=== PATIENT | female | born 1955 | race Caucasian/White ===

== ENCOUNTER → 2017-12-30 21:25 | Outpatient (CLI) | payer BC, SELFPAY ==
[2017-12-30 21:31] LABS: Absolute Lymphocyte Count 2.26 X10^3/ul (0.83-4.51); Basophil# 0.02 X10^3/uL; Basophil% 0.2 % (0-1); Eosinophil# 0.12 X10^3/uL; Eosinophils% 1.3 % (0-5); Hematocrit 42.1 % (37-47); Hemoglobin 13.5 g/dl (12.0-15.0); Lymphocyte # 2.26 X10^3/ul (4.0); Lymphocyte % 24.2 % (19-41); Mean Corp Hgb Conc 32.1 g/gl (32-36); Mean Corpuscular Hgb 27.5 pg (27.0-32.0); Mean Corpuscular Volume 85.7 fL (81-99); Mean Platelet Vol. 9.5 fl (6.2-12.0); Monocyte# 0.89 X10^3/uL; Monocyte% 9.5 % (0-10); Neutrophil # 6.01 X10^3/uL (2.7-7.7); Neutrophil % 64.6 % (47-70); POSITIVE COUNT NO; POSITIVE DIFFERENTIAL NO; POSITIVE MORPHOLOGY NO; Platelet Count 367 K/mm3 (150-450); RBC Distribution Width CV 14.6 % (11.6-14.6); RBC Distribution Width SD 45.9 fl (35.1-43.9); Red Blood Count 4.91 M/mm3 (4.2-5.4); White Blood Count 9.3 K/mm3 (4.4-11.0)
[2017-12-30 21:48] LABS: BUN 15 mg/dL (7-18); Creatinine, Serum 0.99 mg/dL (0.55-1.02); EST Glomerular Filtration Rate 61 mL/min (>60); Glucose 88 mg/dL (74-106)
[2017-12-30 21:49] LABS: ALB/GLOB Ratio 1.1 RATIO (0.9-2.4); AST(SGOT) 24 U/L (15-37); Alanine Aminotransfer ALT/SGPT 40 U/L (13-56); Albumin, Serum 4.2 g/dL (3.2-5.0); Alkaline Phosphatase 101 U/L (45-117); Anion Gap 10 (5-15); BUN/Creat Ratio 15.2 RATIO (10-20); Calcium,Total 9.1 mg/dL (8.5-10.1); Chloride 102 mmol/L (98-107); Cholesterol 134 mg/dL (200); Est Glom Filt Rate - Afr Amer 74 mL/min (>60); Globulin 3.9 g/dL (2.2-4.2); High Density Lipoprotein 46 mg/dL; Potassium 4.3 mmol/L (3.5-5.1); Protein, Total 8.1 g/dL (6.4-8.2); Sodium Level 141 mmol/L (136-145); Triglycerides 109 mg/dL; Very Low Density Lipoprotein 22 mg/dL (5-40)
== END ==
PROVIDERS: Visit Provider Nurse Practitioner
DX: E78.5 Hyperlipidemia, unspecified (principal); K21.9 Gastro-esophageal reflux disease without esophagitis; D64.9 Anemia, unspecified
CPT/HCPCS: 80053; 80061; 85025

== ENCOUNTER → 2018-01-12 15:24 | Outpatient (CLI) | payer BC, SELFPAY ==
[2018-01-17 17:01] LABS: Acetylcholine Receptor Binding < 0.03 nmol/L (0.00-0.24)
== END ==
PROVIDERS: Visit Provider Ophthalmology
DX: H53.2 Diplopia (principal); H25.813 Combined forms of age-related cataract, bilateral; H43.812 Vitreous degeneration, left eye
CPT/HCPCS: 36415; 84238

== ENCOUNTER → 2018-01-17 21:11 | Outpatient (CLI) | payer BC, SELFPAY ==
[2018-01-17 21:44] LABS: Bilirubin, Direct 0.16 mg/dL (0.00-0.30)
== END ==
PROVIDERS: Visit Provider Nurse Practitioner
DX: R17 Unspecified jaundice (principal)
CPT/HCPCS: 82247; 82248

== ENCOUNTER → 2019-01-08 | Outpatient (CLI) | payer BC, SELFPAY ==
[2019-01-08 16:00] VITALS: BMI 42.7
[2019-01-08 23:52] LABS: Absolute Lymphocyte Count 1.98 X10^3/uL (0.83-4.51); Absolute Neutrophil Count 6.7 X10^3/uL (2.0-7.7); Basophil# 0.05 X10^3/uL; Basophil% 0.5 % (0-1); Eosinophil# 0.18 X10^3/uL; Eosinophils% 1.8 % (0-5); Hematocrit 41.4 % (37-47); Lymphocyte # 1.98 X10^3/ul (4.0); Lymphocyte % 19.8 % (19-41); Mean Corp Hgb Conc 31.4 g/dL (32-36); Mean Corpuscular Hgb 27.4 pg (27.0-32.0); Mean Corpuscular Volume 87.2 fL (81-99); Mean Platelet Vol. 9.3 fl (6.2-12.0); Monocyte# 1.04 X10^3/uL; Monocyte% 10.4 % (0-10); NRBC Flagged by Analyzer 0 % (0-5); Neutrophil # 6.73 X10^3/uL (2.7-7.7); Neutrophil % 67.2 % (47-70); Platelet Count 396 K/mm3 (150-450); RBC Distribution Width CV 13.5 % (11.6-14.6); RBC Distribution Width SD 43.3 fl (35.1-43.9); Red Blood Count 4.75 M/mm3 (4.2-5.4)
[2019-01-09 00:23] LABS: AST(SGOT) 18 U/L (15-37); Alanine Aminotransfer ALT/SGPT 30 U/L (13-56); Albumin, Serum 3.9 g/dL (3.2-5.0); Alkaline Phosphatase 117 U/L (45-117); Anion Gap 5 (5-15); BUN 14 mg/dL (7-18); BUN/Creat Ratio 17.1 RATIO (10-20); Calcium,Total 9.1 mg/dL (8.5-10.1); Chloride 104 mmol/L (98-107); Cholesterol 201 mg/dL (200); Creatinine, Serum 0.82 mg/dL (0.55-1.02); EST Glomerular Filtration Rate 76 mL/min (>60); Est Glom Filt Rate - Afr Amer 91 mL/min (>60); Globulin 3.8 g/dL (2.2-4.2); Glucose 84 mg/dL (74-106); High Density Lipoprotein 52 mg/dL; Potassium 4.4 mmol/L (3.5-5.1); Protein, Total 7.7 g/dL (6.4-8.2); Sodium Level 139 mmol/L (136-145); Triglycerides 160 mg/dL; Very Low Density Lipoprotein 32 mg/dL (5-40)
[2019-01-11 14:18] LABS: HPV Reflexed? NOT INDICATED
== END | disposition home or self-care (01) ==
PROVIDERS: Family Provider Nurse Practitioner; PCP Nurse Practitioner; Referring Provider Nurse Practitioner; Visit Provider Nurse Practitioner
DX: Z00.00 Encounter for general adult medical examination without abnormal findings (principal); Z01.419 Encounter for gynecological examination (general) (routine) without abnormal findings
CPT/HCPCS: 80053; 80061; 85025; 88175; G0145

== ENCOUNTER → 2020-01-15 | Outpatient (CLI) | payer BC, SELFPAY ==
[2020-01-15 17:06] VITALS: BMI 36.5
[2020-01-15 22:45] LABS: Absolute Lymphocyte Count 2.76 X10^3/uL (0.83-4.51); Absolute Neutrophil Count 7.5 X10^3/uL (2.0-7.7); Basophil# 0.05 X10^3/uL; Basophil% 0.4 % (0-1); Eosinophils% 0.9 % (0-5); Hematocrit 40.6 % (37-47); Hemoglobin 13.2 g/dL (12.0-15.0); Lymphocyte # 2.76 X10^3/ul (4.0); Lymphocyte % 24.4 % (19-41); Mean Corp Hgb Conc 32.5 g/dL (32-36); Mean Corpuscular Hgb 28.4 pg (27.0-32.0); Mean Corpuscular Volume 87.3 fL (81-99); Mean Platelet Vol. 9.1 fl (6.2-12.0); Monocyte# 0.85 X10^3/uL; Monocyte% 7.5 % (0-10); NRBC Flagged by Analyzer 0 % (0-5); Neutrophil # 7.51 X10^3/uL (2.7-7.7); Neutrophil % 66.5 % (47-70); Platelet Count 393 K/mm3 (150-450); RBC Distribution Width CV 13.3 % (11.6-14.6); RBC Distribution Width SD 42.4 fl (35.1-43.9); Red Blood Count 4.65 M/mm3 (4.2-5.4); White Blood Count 11.3 K/mm3 (4.4-11.0)
[2020-01-15 22:54] LABS: AST(SGOT) 19 U/L (15-37); Alanine Aminotransfer ALT/SGPT 29 U/L (13-56); Alkaline Phosphatase 114 U/L (45-117); Anion Gap 5 (5-15); BUN 14 mg/dL (7-18); BUN/Creat Ratio 16.3 RATIO (10-20); Calcium,Total 9.2 mg/dL (8.5-10.1); Chloride 101 mmol/L (98-107); Cholesterol 308 mg/dL (200); Creatinine, Serum 0.86 mg/dL (0.55-1.02); EST Glomerular Filtration Rate 71 mL/min (>60); Est Glom Filt Rate - Afr Amer 86 mL/min (>60); Globulin 3.9 g/dL (2.2-4.2); Glucose 86 mg/dL (74-106); High Density Lipoprotein 53 mg/dL; Potassium 4.3 mmol/L (3.5-5.1); Protein, Total 7.9 g/dL (6.4-8.2); Sodium Level 137 mmol/L (136-145); Triglycerides 237 mg/dL; Very Low Density Lipoprotein 47 mg/dL (5-40)
[2020-01-19 14:38] LABS: HPV Reflexed? NOT INDICATED
== END | disposition home or self-care (01) ==
PROVIDERS: Visit Provider Nurse Practitioner
DX: Z00.00 Encounter for general adult medical examination without abnormal findings (principal); Z01.419 Encounter for gynecological examination (general) (routine) without abnormal findings; Z12.72 Encounter for screening for malignant neoplasm of vagina
CPT/HCPCS: 80053; 80061; 85025; 88175; G0145

== ENCOUNTER → 2021-02-05 | Outpatient (CLI) | payer BC, SELFPAY ==
[2021-02-05 22:10] LABS: Absolute Lymphocyte Count 2.82 X10^3/uL (0.83-4.51); Absolute Neutrophil Count 6.1 X10^3/uL (2.0-7.7); Basophil# 0.05 X10^3/uL; Basophil% 0.5 % (0-1); Eosinophil# 0.12 X10^3/uL; Eosinophils% 1.2 % (0-5); Hematocrit 41.4 % (37-47); Hemoglobin 13.4 g/dL (12.0-15.0); Lymphocyte # 2.82 X10^3/ul (0.83-4.51); Lymphocyte % 28.3 % (19-41); Mean Corp Hgb Conc 32.4 g/dL (32-36); Mean Corpuscular Hgb 27.9 pg (27.0-32.0); Mean Corpuscular Volume 86.1 fL (81-99); Mean Platelet Vol. 9.3 fl (6.2-12.0); Monocyte# 0.84 X10^3/uL; Monocyte% 8.4 % (0-10); NRBC Flagged by Analyzer 0 % (0-5); Neutrophil % 61.3 % (47-70); Platelet Count 404 K/mm3 (150-450); RBC Distribution Width CV 13.2 % (11.6-14.6); RBC Distribution Width SD 41.9 fl (35.1-43.9); Red Blood Count 4.81 M/mm3 (4.2-5.4)
[2021-02-05 22:28] LABS: ALB/GLOB Ratio 0.9 RATIO (0.9-2.4); AST(SGOT) 19 U/L (15-37); Alanine Aminotransfer ALT/SGPT 42 U/L (13-56); Albumin, Serum 3.8 g/dL (3.2-5.0); Alkaline Phosphatase 117 U/L (45-117); Anion Gap 5 (5-15); BUN 12 mg/dL (7-18); BUN/Creat Ratio 14.5 RATIO (10-20); Calcium,Total 9.2 mg/dL (8.5-10.1); Chloride 99 mmol/L (98-107); Cholesterol 346 mg/dL (200); Creatinine, Serum 0.83 mg/dL (0.55-1.02); EST Glomerular Filtration Rate 74 mL/min (>60); Est Glom Filt Rate - Afr Amer 89 mL/min (>60); Globulin 4.3 g/dL (2.2-4.2); Glucose 86 mg/dL (74-106); High Density Lipoprotein 51 mg/dL; Potassium 4.4 mmol/L (3.5-5.1); Protein, Total 8.1 g/dL (6.4-8.2); Sodium Level 134 mmol/L (136-145); Triglycerides 261 mg/dL; Very Low Density Lipoprotein 52 mg/dL (5-40)
== END | disposition home or self-care (01) ==
PROVIDERS: Visit Provider Nurse Practitioner
DX: D64.9 Anemia, unspecified (principal); E78.5 Hyperlipidemia, unspecified
CPT/HCPCS: 80053; 80061; 85025

== ENCOUNTER → 2022-02-10 | Outpatient (CLI) | payer BC, SELFPAY ==
[2022-02-10 21:28] LABS: Absolute Neutrophil Count 6.6 X10^3/uL (2.0-7.7); Basophil# 0.05 X10^3/uL; Basophil% 0.5 % (0-1); Eosinophil# 0.15 X10^3/uL; Eosinophils% 1.4 % (0-5); Hematocrit 39.4 % (37-47); Hemoglobin 12.8 g/dL (12.0-15.0); Mean Corp Hgb Conc 32.5 g/dL (32-36); Mean Corpuscular Hgb 28.2 pg (27.0-32.0); Mean Corpuscular Volume 86.8 fL (81-99); Mean Platelet Vol. 10.3 fl (6.2-12.0); Monocyte# 0.75 X10^3/uL; Monocyte% 7.2 % (0-10); NRBC Flagged by Analyzer 0 % (0-5); Neutrophil % 63.6 % (47-70); Platelet Count 245 K/mm3 (150-450); RBC Distribution Width CV 13.5 % (11.6-14.6); RBC Distribution Width SD 42.1 fl (35.1-43.9); Red Blood Count 4.54 M/mm3 (4.2-5.4); White Blood Count 10.4 K/mm3 (4.4-11.0)
[2022-02-10 21:43] LABS: AST(SGOT) 18 U/L (15-37); Alanine Aminotransfer ALT/SGPT 28 U/L (13-56); Albumin, Serum 3.8 g/dL (3.2-5.0); Alkaline Phosphatase 105 U/L (45-117); Anion Gap 6 (5-15); BUN 14 mg/dL (7-18); BUN/Creat Ratio 15.7 RATIO (10-20); Calcium,Total 9.2 mg/dL (8.5-10.1); Chloride 101 mmol/L (98-107); Cholesterol 197 mg/dL (200); Creatinine, Serum 0.89 mg/dL (0.55-1.02); EST Glomerular Filtration Rate 68 mL/min (>60); Est Glom Filt Rate - Afr Amer 82 mL/min (>60); Globulin 3.7 g/dL (2.2-4.2); Glucose 99 mg/dL (74-106); High Density Lipoprotein 55 mg/dL; Protein, Total 7.5 g/dL (6.4-8.2); Sodium Level 138 mmol/L (136-145); Triglycerides 216 mg/dL; Very Low Density Lipoprotein 43 mg/dL (5-40)
== END | disposition home or self-care (01) ==
PROVIDERS: Visit Provider Nurse Practitioner
DX: Z00.00 Encounter for general adult medical examination without abnormal findings (principal)
CPT/HCPCS: 80053; 80061; 85025

== ENCOUNTER → 2023-02-08 | Outpatient (CLI) | payer BC, SELFPAY ==
[2023-02-08 21:10] LABS: Absolute Lymphocyte Count 2.63 X10^3/uL (0.83-4.51); Absolute Neutrophil Count 5.5 X10^3/uL (2.0-7.7); Basophil# 0.05 X10^3/uL; Basophil% 0.5 % (0-1); Eosinophil# 0.17 X10^3/uL; Eosinophils% 1.9 % (0-5); Hematocrit 40.9 % (37-47); Hemoglobin 13.2 g/dL (12.0-15.0); Lymphocyte # 2.63 X10^3/ul (0.83-4.51); Lymphocyte % 28.8 % (19-41); Mean Corp Hgb Conc 32.3 g/dL (32-36); Mean Corpuscular Hgb 27.7 pg (27.0-32.0); Mean Corpuscular Volume 85.7 fL (81-99); Mean Platelet Vol. 9.5 fl (6.2-12.0); Monocyte# 0.75 X10^3/uL; Monocyte% 8.2 % (0-10); NRBC Flagged by Analyzer 0 % (0-5); Neutrophil % 60.2 % (47-70); Platelet Count 433 K/mm3 (150-450); RBC Distribution Width SD 43.8 fl (35.1-43.9); Red Blood Count 4.77 M/mm3 (4.2-5.4); White Blood Count 9.1 K/mm3 (4.4-11.0)
[2023-02-08 21:29] LABS: ALB/GLOB Ratio 1.1 RATIO (0.9-2.4); AST(SGOT) 20 U/L (15-37); Alanine Aminotransfer ALT/SGPT 28 U/L (13-56); Albumin, Serum 4.1 g/dL (3.2-5.0); Alkaline Phosphatase 131 U/L (45-117); Anion Gap 7 (5-15); BUN 10 mg/dL (7-18); BUN/Creat Ratio 11.7 RATIO (10-20); Calcium,Total 8.9 mg/dL (8.5-10.1); Chloride 101 mmol/L (98-107); Cholesterol 227 mg/dL (200); Creatinine, Serum 0.86 mg/dL (0.55-1.02); EST Glomerular Filtration Rate 71 mL/min (>60); Est Glom Filt Rate - Afr Amer 86 mL/min (>60); Globulin 3.8 g/dL (2.2-4.2); Glucose 94 mg/dL (74-106); High Density Lipoprotein 54 mg/dL; Protein, Total 7.9 g/dL (6.4-8.2); Sodium Level 135 mmol/L (136-145); Triglycerides 172 mg/dL; Very Low Density Lipoprotein 34 mg/dL (5-40)
== END | disposition home or self-care (01) ==
PROVIDERS: Visit Provider Nurse Practitioner
DX: Z00.00 Encounter for general adult medical examination without abnormal findings (principal)
CPT/HCPCS: 80053; 80061; 85025

== ENCOUNTER → 2023-12-30 | Outpatient (CLI) | payer OTHER, SELFPAY ==
[2023-12-30 17:30] LABS: Bacteria 0 SEEN /hpf (None Seen); Mucous, Urine 0 SEEN /hpf (<or=2+); Red Blood Cells-Urine 0 SEEN /hpf (0-5); Squamous Epithelial Cells - UA 0 SEEN /hpf (5-10); White Blood Cells 0 SEEN /hpf (0-5)
[2023-12-30 17:49] LABS: Color, Urine Yellow (Yellow); Glucose, Dipstick Normal (Normal); Ketone-Dipstick Negative (Negative); Leukocyte Esterase-Dipstick 25 /ul (Negative); Nitrite-Dipstick Negative (Negative); Occult Blood-Urine 10 /ul (Negative); Protein-Dipstick Negative (Negative); Urine Bilirubin Dipstick Negative (Negative); Urine Clarity Clear (Clear); Urine Urobilinogen Normal (Normal); Urine pH 6.5 (5.0 - 8.0)
== END | disposition home or self-care (01) ==
PROVIDERS: Referring Provider Physician Assistant Surgical; Visit Provider Physician Assistant Surgical
DX: R30.0 Dysuria (principal)
CPT/HCPCS: 81001; 87077; 87086; 87088; 87186

== ENCOUNTER → 2024-01-31 | Outpatient (CLI) | payer OTHER, SELFPAY ==
[2024-01-31 20:29] LABS: Absolute Lymphocyte Count 2.98 X10^3/uL (0.83-4.51); Absolute Neutrophil Count 6.2 X10^3/uL (2.0-7.7); Basophil# 0.06 X10^3/uL; Basophil% 0.6 % (0-1); Eosinophil# 0.26 X10^3/uL; Eosinophils% 2.5 % (0-5); Hematocrit 36.2 % (37-47); Hemoglobin 11.2 g/dL (12.0-15.0); Lymphocyte # 2.98 X10^3/ul (0.83-4.51); Lymphocyte % 28.2 % (19-41); Mean Corp Hgb Conc 30.9 g/dL (32-36); Mean Platelet Vol. 9.1 fl (6.2-12.0); Monocyte# 1.08 X10^3/uL; Monocyte% 10.2 % (0-10); NRBC Flagged by Analyzer 0 % (0-5); Neutrophil # 6.16 X10^3/uL (2.7-7.7); Neutrophil % 58.1 % (47-70); Platelet Count 464 K/mm3 (150-450); RBC Distribution Width CV 14.7 % (11.6-14.6); RBC Distribution Width SD 44.9 fl (35.1-43.9); Red Blood Count 4.31 M/mm3 (4.2-5.4); White Blood Count 10.6 K/mm3 (4.4-11.0)
[2024-01-31 20:49] LABS: ALB/GLOB Ratio 0.9 RATIO (0.9-2.4); AST(SGOT) 21 U/L (15-37); Alanine Aminotransfer ALT/SGPT 33 U/L (13-56); Albumin, Serum 3.5 g/dL (3.2-5.0); Alkaline Phosphatase 138 U/L (45-117); Anion Gap 4 (5-15); BUN 6 mg/dL (7-18); BUN/Creat Ratio 8.6 RATIO (10-20); Chloride 96 mmol/L (98-107); Cholesterol 140 mg/dL (200); EST Glomerular Filtration Rate 90 mL/min (>60); Est Glom Filt Rate - Afr Amer 108 mL/min (>60); Globulin 3.9 g/dL (2.2-4.2); Glucose 83 mg/dL (74-106); High Density Lipoprotein 47 mg/dL; Potassium 3.9 mmol/L (3.5-5.1); Protein, Total 7.4 g/dL (6.4-8.2); Sodium Level 130 mmol/L (136-145); Triglycerides 145 mg/dL; Very Low Density Lipoprotein 29 mg/dL (5-40)
== END | disposition home or self-care (01) ==
PROVIDERS: PCP Nurse Practitioner; Referring Provider Nurse Practitioner; Visit Provider Nurse Practitioner
DX: Z00.00 Encounter for general adult medical examination without abnormal findings (principal)
CPT/HCPCS: 80053; 80061; 85025

== ENCOUNTER → 2025-01-25 | Outpatient (CLI) | payer OTHER, SELFPAY ==
--- OUTSIDE RECORDS SUMMARY | 2025-01-25 22:50 | XMS RPT_ITS | CCD ---
Author Organization [facility] Care Team Providers Care Outreach Worker Name Role Phone Gustabo Muñiz MD Unavailable [phone] AWENDER, H S Unavailable Unavailable AWENDER, H S Unavailable Unavailable NO REFERRING DR Unavailable Unavailable AWENDER, H S Unavailable Unavailable Gustabo Muñiz MD Unavailable [phone] Unavailable Primary Care Provider UnavailJesus Camilo Attending Unavailable Cooper [employer], Liliana Referring Unavailable Cooper BECERRA, Liliana Attending Unavailable Cooper [employer], Liliana Primary Care Unavailable Jesus Pazi Attending Unavailable Jesus Paiz Referring Unavailable Medications Completed/Discontinued Medications Medication Drug Class(es) Dates Sig (Normalized) Sig (Original) atorvastatin 80 mg oral tablet (3 sources) HMG-CoA Reductase Inhibitor Start: 09-30-2016 take 1 tablet by mouth once daily LIPITOR 80 MG TABS One tablet by mouth daily ATORVASTATIN CALCIUM [id number] Gustabo Muñiz MD Comment on above: Take 80 mg by mouth once daily. omeprazole 20 mg delayed release oral tablet (3 sources) Proton Pump Inhibitor take 1 tablet by mouth once daily Omeprazole Magnesium 20 mg tablet Take 20 mg by mouth once daily. 0 Active take 1 tablet by mouth once michael y PRILOSEC 20 MG CPDR One tablet by mouth daily OMEPRAZOLE [id number] Gustabo Muñiz MD take 1 tablet by mouth once michael y PRILOSEC 20 MG CPDR One tablet by mouth daily OMEPRAZOLE [id number] Gustabo Muñiz MD Comment on above: Take 20 mg by mouth once daily. 24 hr venlafaxine 150 mg extended release oral capsule (3 sources) Serotonin and Norepinephrine Reuptake Inhibitor take 1 capsule by mouth once daily venlafaxine XR (EFFEXOR XR) 150 mg 24 hr capsule Take 150 mg by mouth once daily. 0 Active take 1 tablet by mouth once michael y EFFEXOR XR 150 MG [id number] One tablet by mouth daily VENLAFAXINE HCL [id number] Gustabo Muñiz MD Comment on above: Take 150 mg by mouth once daily. Problems Active Problems Problem Classification Problem Date Documented Date Episodic/Chronic Disorders of lipid metabolism (5 sources) Hyperlipidemia; Translations: [Hypercholesterolemia] Onset: 08-26-2016 09-30-2016 Chronic Diverticulosis and diverticulitis (1 source) Diverticulosis of small intestine without perforation or abscess without bleeding; Translations: [DVRTCLOS SM INT NO PERF/] Onset: 08-26-2016 Chronic Esophageal disorders (3 sources) Gastroesophageal reflux disease; Translations: [Gastro-esophageal reflux disease without esophagitis] Onset: 08-26-2016 09-30-2016 Chronic Genitourinary symptoms and ill-defined conditions (1 source) Dysuria; Translations: [Dysuria] Onset: 01-26-2024 Episodic Mood disorders (2 sources) Mixed anxiety and depressive disorder; Translations: [Other specified anxiety disorders] Onset: 09-30-2016 09-30-2016 Chronic Mood disorders (1 source) Major depressive disorder, single episode, unspecified; Translations: [MICHAEL DEPRESS D/O SINGLE E] Onset: 08-26-2016 Other nutritional; endocrine; and metabolic disorders (1 source) Obesity, unspecified; Translations: [OBESITY UNSPECIFIED] Onset: 08-26-2016 Chronic Other upper respiratory disease (2 sources) Seasonal allergy; Translations: [Other seasonal allergic rhinitis] Onset: 09-30-2016 09-30-2016 Chronic Unclassified (1 source) Body mass index (BMI) 37.0-37.9, adult; Translations: [BODY MASS INDEX BMI 37.0] Onset: 08-26-2016 Chronic Unclassified (1 source) OPENED IN ERROR Past or Other Problems Problem Classification Problem Date Documented Da te Episodic/Chronic Biliary tract disease (7 sources) Common bile duct calculus; Translations: [Gallstone] Onset: 7 09-30-2016 Episodic Calculus of urinary tract (2 sources) Kidney stone; Translations: [Calculus of kidney] Onset: 7 09-30-2016 Episodic Other fractures (2 sources) Fracture of bone; Translations: [Other injury of unspecified body region] Onset: 7 09-30-2016 Episodic Other gastrointestinal disorders (1 source) Encounter for fitting and adjustment of other gastrointestinal appliance and device; Translations: [END FIT T ADJUST OTH GI] Onset: 7 Episodic Pneumonia (2 sources) Pneumonia; Translations: [Pneumonia, unspecified organism] Onset: 7 09-30-2016 Episodic Results Test Name Value Interpretation Reference Range Facility CBC W/Diff, Automatedon 01-21 0 Absolute Lymph 2.98 X10 3/uL Normal 0.83-4.51 [facility] Comment on above: Performed By: #### L 500.4100, L100.0100, L500.4050 #### [facility] [address] [place], [address] Absolute Neut 6.2 X10 3/uL Normal 2.0-7.7 [facility] Comment on above: Performed By: #### L 500.4100, L100.0100, L500.4050 #### [facility] [address] [place], [address] Basophils/100 WBC (Bld) 0.6 % Normal 0-1 [facility] Comment on above: Performed By: #### L 500.4100, L100.0100, L500.4050 #### [facility] [address] [place], [address] Eosinophils/100 WBC (Bld) 2.5 % Normal 0-5 [facility] Comment on above: Performed By: #### L 500.4100, L100.0100, L500.4050 #### [facility] [address] [place], [address] Erythrocyte distribution width (RBC) [Ratio] 14.7 % High 11.6-14.6 [facility] Comment on above: Performed By: #### L 500.4100, L100.0100, L500.4050 #### [facility] [address] [place], [address] Hematocrit (Bld) [Volume fraction] 36.2 % Low 37-47 [facility] Comment on above: Performed By: #### L 500.4100, L100.0100, L500.4050 #### [facility] [address] [place], [address] Hemoglobin (Bld) [Mass/Vol] 11.2 g/dL Low 12.0-15.0 [facility] Comment on above: Performed By: #### L 500.4100, L100.0100, L500.4050 #### [facility] [address] [place], [address] IG% 0.400 Normal 0.0-0.9 [facility] Comment on above: Result Comment: IG% - Immature Granulocytes (promyelocytes, myelocytes and metamyelocytes) > 1% indicates that a LEFT SHIFT is Present. Performed By: #### L 500.4100, L100.0100, L500.4050 #### [facility] [address] [place], [address] Lymphocytes/100 WBC (Bld) 28.2 % Normal 19-41 [facility] Comment on above: Performed By: #### L 500.4100, L100.0100, L500.4050 #### [facility] [address] [place], [address] MCH (RBC) [Entitic mass] 26.0 pg Low 27.0-32.0 [facility] Comment on above: Performed By: #### L 500.4100, L100.0100, L500.4050 #### [facility] [address] [place], [address] MCHC (RBC) [Mass/Vol] 30.9 g/dL Low 32-36 [facility] Comment on above: Performed By: #### L 500.4100, L100.0100, L500.4050 #### [facility] [address] [place], [address] MCV (RBC) [Entitic vol] 84.0 fL Normal 81-99 [facility] Comment on above: Performed By: #### L 500.4100, L100.0100, L500.4050 #### [facility] [address] [place], [address] Monocytes/100 WBC (Bld) 10.2 % High 0-10 [facility] Comment on above: Performed By: #### L 500.4100, L100.0100, L500.4050 #### [facility] [address] [place], [address] Neutrophils/100 WBC (Bld) 58.1 % Normal 47-70 [facility] Comment on above: Performed By: #### L 500.4100, L100.0100, L500.4050 #### [facility] [address] [place], [address] Nucleated RBC (Bld) [#/Vol] 0 10*3/uL Normal 0-5 [facility] Comment on above: Performed By: #### L 500.4100, L100.0100, L500.4050 #### [facility] [address] [place], [address] Platelet mean volume (Bld) [Entitic vol] 9.1 fL Normal 6.2-12.0 [facility] Comment on above: Performed By: #### L 500.4100, L100.0100, L500.4050 #### [facility] [address] [place], [address] Platelets (Bld) [#/Vol] 464 10*3/uL High 150-450 [facility] Comment on above: Performed By: #### L 500.4100, L100.0100, L500.4050 #### [facility] [address] [place], [address] RBC (Bld) [#/Vol] 4.31 10*6/uL Normal 4.2-5.4 [facility] Comment on above: Performed By: #### L 500.4100, L100.0100, L500.4050 #### [facility] [address] [place], [address] RDW SD 44.9 fl High 35.1-43.9 [facility] Comment on above: Performed By: #### L 500.4100, L100.0100, L500.4050 #### [facility] [address] [place], [address] WBC (Bld) [#/Vol] 10.6 10*3/uL Normal 4.4-11.0 [facility] Comment on above: Performed By: #### L 500.4100, L100.0100, L500.4050 #### [facility] [address] [place], [address] [facility]-2024 Albumin [Mass/Vol] 3.5 g/dL Normal 3.2-5.0 [facility] Comment on above: Performed By: #### L 500.4100, L100.0100, L500.4050 #### [facility] [address] [place], [address] Albumin/Globulin [Mass ratio] 0.9 {ratio} Normal 0.9-2.4 [facility] Comment on above: Performed By: #### L 500.4100, L100.0100, L500.4050 #### [facility] [address] [place], [address] ALK P 138 U/L High 45-117 [facility] Comment on above: Performed By: #### L 500.4100, L100.0100, L500.4050 #### [facility] [address] [place], [address] ALT [Catalytic activity/Vol] 33 U/L Normal 13-56 [facility] Comment on above: Performed By: #### L 500.4100, L100.0100, L500.4050 #### [facility] [address] [place], [address] AST [Catalytic activity/Vol] 21 U/L Normal 15-37 [facility] Comment on above: Performed By: #### L 500.4100, L100.0100, L500.4050 #### [facility] [address] [place], [address] Bilirubin [Mass/Vol] 0.30 mg/dL Normal 0.20-1.00 [facility] Comment on above: Result Comment: For patients on eltrombopag therapy, use of Dimension [place] TBIL is not recommended. Performed By: #### L 500.4100, L100.0100, L500.4050 #### [facility] [address] [place], [address] BUN/CRE 8.6 RATIO Low 10-20 [facility] Comment on above: Performed By: #### L 500.4100, L100.0100, L500.4050 #### [facility] [address] [place], [address] CA,Total 9.0 mg/dL Normal 8.5-10.1 [facility] Comment on above: Performed By: #### L 500.4100, L100.0100, L500.4050 #### [facility] [address] [place], [address] Chloride [Moles/Vol] 96 mmol/L Low 98-107 [facility] Comment on above: Performed By: #### L 500.4100, L100.0100, L500.4050 #### [facility] [address] [place], [address] CO2 [Moles/Vol] 30.0 mmol/L Normal 21.0-32.0 [facility] Comment on above: Performed By: #### L 500.4100, L100.0100, L500.4050 #### [facility] [address] [place], [address] Creatinine [Mass/Vol] 0.70 mg/dL Normal 0.55-1.02 [facility] Comment on above: Result Comment: The validity of the calculated GFR GFRAA in patients over 70 years has not been determined. Clinical correlation is essential. Performed By: #### L 500.4100, L100.0100, L500.4050 #### [facility] [address] [place], [address] EST GFR - AA 108 mL/min Normal >60 [facility] Comment on above: Result Comment: Afri can [place] GFR Calc Performed By: #### L 500.4100, L100.0100, L500.4050 #### [facility] [address] [place], [address] GAP 4 Low 5-15 [facility] Comment on above: Performed By: #### L 500.4100, L100.0100, L500.4050 #### [facility] [address] [place], [address] GFR/1.73 sq M.predicted among non-blacks MDRD (S/P/Bld) [Vol rate/Area] 90 mL/min/{1.73_m2} Normal >60 [facility] Comment on above: Result Comment: Non- GFR Calc Performed By: #### L 500.4100, L100.0100, L500.4050 #### [facility] [address] [place], [address] Globulin (S) [Mass/Vol] 3.9 g/dL Normal 2.2-4.2 [facility] Comment on above: Performed By: #### L 500.4100, L100.0100, L500.4050 #### [facility] [address] [place], [address] Glucose [Mass/Vol] 83 mg/dL Normal 74-106 [facility] Comment on above: Performed By: #### L 500.4100, L100.0100, L500.4050 #### [facility] [address] [place], [address] Potassium [Moles/Vol] 3.9 mmol/L Normal 3.5-5.1 [facility] Comment on above: Performed By: #### L 500.4100, L100.0100, L500.4050 #### [facility] [address] [place], [address] Sodium [Moles/Vol] 130 mmol/L Low 136-145 [facility] Comment on above: Performed By: #### L 500.4100, L100.0100, L500.4050 #### [facility] [address] [place], [address] T PROT 7.4 g/dL Normal 6.4-8.2 [facility] Comment on above: Performed By: #### L 500.4100, L100.0100, L500.4050 #### [facility] [address] [place], [address] Urea nitrogen [Mass/Vol] 6 mg/dL Low 7-18 [facility] Comment on above: Performed By: #### L 500.4100, L100.0100, L500.4050 #### [facility] [address] [place], [address] Lipid Profileon 01-31-2024 Cholesterol [Mass/Vol] 140 mg/dL Normal 200 [facility] Comment on above: Result Comment: <200 mg/dL Desirable 200-240 mg/dL Borderline >240 mg/dL High Risk Performed By: #### L 500.4100, L100.0100, L500.4050 #### [facility] [address] [place], [address] Cholesterol in HDL [Mass/Vol] 47 mg/dL Normal [facility] Comment on above: Result Comment: The drugs N-Acetylcysteine and Metamizole may falsely depress this assay. Reference Range HDL <40 mg/dL Low HDL Cholesterol HDL >or= 60 mg/dL High HDL Cholesterol Performed By: #### L 500.4100, L100.0100, L500.4050 #### [facility] [address] [place], [address] Cholesterol in LDL [Mass/Vol] 64 mg/dL Normal 0-130 [facility] Comment on above: Performed By: #### L 500.4100, L100.0100, L500.4050 #### [facility] [address] [place], [address] Cholesterol in VLDL [Mass/Vol] 29 mg/dL Normal 5-40 [facility] Comment on above: Performed By: #### L 500.4100, L100.0100, L500.4050 #### [facility] [address] [place], [address] Triglyceride [Mass/Vol] 145 mg/dL Normal [facility] Comment on above: Result Comment: The drugs N-Acetylcysteine and Metamizole may falsely depress this assay. Serum Triglycerides Reference Interval Normal <150 mg/dL Borderline high 150 - 199 mg/dL High 200 - 499 mg/dL Very High > or = 500 mg/dL Performed By: #### L 500.4100, L100.0100, L500.4050 #### [facility] [address] [place], [place], [address] Urine Cultureon 01-01-2024 [facility] Klebsiella pneumoniae sp pneum [place] Count 11,000-25,000 Klebsiella pneumoniae sp pneum: REACTION Ampicillin Islt LYNN >=32 R Ampicillin+Sulbac Islt LYNN 8 S ceFAZolin Islt LYNN <=4 S Cefepime Islt LYNN <=0.12 S cefTRIAXone Islt LYNN <=0.25 S Ciprofloxacin Islt LYNN <=0.25 S Ertapenem Islt LYNN <=0.12 S B-Lactamase Extended Susc Islt NEG Gentamicin Islt LYNN <=1 S Imipenem Islt LYNN <=0.25 S levoFLOXacin Islt LYNN <=0.12 S Nitrofurantoin Islt LYNN 128 R Pip+Tazo Islt LYNN <=4 S Tobramycin Islt LYNN <=1 S TMP SMX Islt LYNN <=[address] [facility] Comment on above: Performed By: #### M 100.2200, L400.0001 #### [facility] [address] [place], [place], [address] Urgent Care Visit Reporton 0 12-30-2023 Urgent Care Visit Report [facility] [address], [address] [place], [place] [address] OFFICE VISIT Date of Service: 12/30/23 MR#: [id number] Acct: [id number] Name: ALAN MENON Rep #: [id number] : 1955 Provider: VIRGINIA Benjamin Age/Sex: 68/F Location[place] [facility] Status: Signed Intake Vital Signs 04/13/23 18:45 12/30/23 15:06 Height 4 ft 11 in 4 ft 11 in Weight: 192 lb BMI 38.7 BP 134/94 H Blood Pressure Location Lt brachial Position Sitting Respiration 16 Pulse 102 H Pulse Source Monitor Temp 98.4 F Temp Source Temporal Pulse Oximetry (%) 97 Oxygen Delivery Method room air Intake Visit Reasons: Urinary tract infection Chief Complaint: 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 Accompanied by: Self Is patient in pain?: No Allergies No Known Allergies Allergy (Verified 12/30/23 15:07) Medications ???Medication ???Instructions ???Recorded ???Confirmed ???Type aspirin 81 mg tablet,delayed 81 mg PO QDAY 12/30/17 12/30/23 History release (Adult Low Dose Aspirin) levocetirizine 5 mg tablet 5 mg PO QPM PRN 02/05/21 12/30/23 History (Allergy Relief (levocetirizine)) atorvastatin 80 mg tablet 80 mg PO QDAY #90 tabs 02/08/23 12/30/23 Rx omeprazole 20 mg capsule,delayed 20 mg PO DAILY #90 caps 02/08/23 12/30/23 Rx release venlafaxine 150 mg 150 mg PO DAILY #90 caps 02/08/23 12/30/23 Rx capsule,extended release 24 hr ofloxacin 0.3 % eye drops See Rx Instructions ophthalmic 04/13/23 12/30/23 Rx (eye) .COMPLEX #5 mL nitrofurantoin 1 cap PO Q12H 7 days #14 caps 12/30/23 12/30/23 Rx monohydrate/macroc rystals 100 mg capsule Have you fallen in the past year?: No PFSH Medical History Anemia Rosacea, acne Hyperlipidemia Depression Dilated CBD Surgical History H/O tubal ligation History of ERCP Family History Other CVA (cerebral vascular accident) Depressed High cholesterol Social History Smoking Status: Never smoker alcohol intake: never HPI HPI Chief Complaint: DYSURIA Details: ALAN MENON, is a 68 F who presents to the office today for complaint of dysuria for the past 2 days. Patient also states having increased urinary urgency as well as frequency. No fever, chills, sweats. No pelvic or abdominal pain. No loss of bowel or bladder control. No other associated symptoms or alleviating/aggrav ating factors. ROS Const Constitutional: No other (6 system ROS completed with pertinent findings in the HPI otherwise normal.) Exam Const General: cooperative and healthy appearing Resp Effort Inspection: normal respiratory effort Auscultation: Bilateral: Clear to Auscultation Cardio Rate: regular rate Rhythm: regular rhythm GI Auscultation: normal bowel sounds General: No CVA tenderness Psych Appearance: grossly normal Mental Status: mental status grossly normal Results POC Urinalysis Dip (Clinic) Office Urine Color Colorless Last Edit by [place] MA on 12/30/23 15:11 Office Urine Clarity Hazy Last Edit by [place] MA on 12/30/23 15:11 Office Urine Glucose Negative Last Edit by [place] MA on 12/30/23 15:11 Office Urine Ketones Negative Last Edit by [place] MA on 12/30/23 15:11 Off Ur Spec [place] 1.010 Last Edit by [place] MA on 12/30/23 15:11 Office Urine pH 6.5 Last Edit by [place] MA on 12/30/23 15:11 Office Urine Bilirubin Negative Last Edit by [place] MA on 12/30/23 15:11 Office Urine Urobilinogen 0.2 mg/dL Last Edit by [place] MA on 12/30/23 15:11 Office Urine Blood Hemolyzed Last Edit by [place] MA on 12/30/23 15:11 Office Urine Blood Hemolyzed Moderate Last Edit by [place] MA on 12/30/23 15:11 Office Urine Protein Negative Last Edit by [place] MA on 12/30/23 15:11 Office Urine Nitrate Negative Last Edit by [place] MA on 12/30/23 15:11 Off Ur Leukocytes Positive Last Edit by [place] MA on 12/30/23 15:11 Coding Level of Care Code Off vis,new,level 3 Diagnoses Urinary tract infection N39.0 Assessment and Plan Assessment and Plan (1) Urinary tract infection: Orders: Orders Urinalysis, Complete Today R30.0 - Dysuria Culture, Urine Today R30.0 - Dysuria POC Urinalysis Dip (Clinic) Today R30.0 - Dysuria Medications: New nitrofurantoin monohyd/m-cryst 100 mg administer with a meal/food; swallow whole; do not open, crush, dissolve , or chew 1 cap PO Q12H 14 caps 0RF 7 days Plan Macrobid as prescribed today. Encouraged to get plenty of rest, drink lots of clear liquid (more content not included)... Normal [facility] Urinalysis, Completeon 12-29 BACTERIA 0 SEEN Normal None Seen [facility] Comment on above: Order Comment: JENNY CTOR TO SPECIFY Performed By: #### M 100.2200, L400.0001 #### [facility] [address] [place], [address] EPI,SQUAMOUS 0 SEEN Normal 5-10 [facility] Comment on above: Order Comment: JENNY CTOR TO SPECIFY Performed By: #### M 100.2200, L400.0001 #### [facility] [address] [place], [address] Mucus Ql (Urine sed) 0 SEEN Normal [facility] Comment on above: Order Comment: JENNY CTOR TO SPECIFY Performed By: #### M 100.2200, L400.0001 #### [facility] [address] [place], [address] RBC 0 SEEN Normal 0-5 [facility] Comment on above: Order Comment: JENNY CTOR TO SPECIFY Performed By: #### M 100.2200, L400.0001 #### [facility] [address] [place], [address] WBC 0 SEEN Normal 0-5 [facility] Comment on above: Order Comment: JENNY CTOR TO SPECIFY Performed By: #### M 100.2200, L400.0001 #### [facility] [address] [place], [address] Office Visit: Consult Cholec ystectomyon 09-30-2016 Dietary management education, guidance, and counseling (procedure) yes Invalid Interpretation Code [facility] [employer] Work Phone: Documentation of current medications (procedure) Done Invalid Interpretation Code [facility] [employer] Work Phone: Fall risk assessment No [facility] [employer] Work Phone: Tobacco smoking status NHIS Never [facility] [employer] Work Phone: Tobacco smoking status NHIS Never smoker [facility] Work Phone: Tobacco use [facility] Never smoker Invalid Interpretation Code [facility] Work Phone: Lab Report: Liver Profileon 06-03-2016 Alanine aminotransferase (ALT) 362 U/L High 12-78 [facility] Surgi sharyn [facility] Work Phone: Albumin 3.0 g/dL Low 3.4-5.0 [facility] Work Phone: Alkaline phosphatase (ALP) 360 U/L High 45-117 [facility] Work Phone: ALP (Bld) [Catalytic activity/Vol] 360 U/L High 45-117 [facility] Work Phone: Aspartate aminotransferase (AST) 144 U/L High 15-37 [facility] Surgi sharyn [facility] Work Phone: Bilirubin (direct) 3.23 mg/dL High 0.00-0.30 [facility] Work Phone: Bilirubin (total) 4.20 mg/dL High 0.20-1.00 [facility] Work Phone: Globulin 3.7 g/dL High 2.3-3.5 [facility] Work Phone: Globulin (S) [Mass/Vol] 3.7 g/dL High 2.3-3.5 [facility] Surgical [facility] Work Phone: Protein 6.7 g/dL 6.4-8.2 [facility] Work Phone: Microbiology: Culture, Urine on 06-03-2016 CUUR . [facility] Work Phone: GE use only - for [employer] import when terms are not otherwise specified . Invalid Interpretation Code [facility] Surgical [facility] Work Phone: Lab Report: CBC W/Diff, Auto matedon 06-02-2016 Basophils/100 leukocytes 0.6 % Invalid Interpretation Code 0-1 [facility] Surgical [facility] Work Phone: Basophils/100 WBC (Bld) 0.6 % 0-1 [facility] Work Phone: Eosinophils/100 leukocytes 3.4 % Invalid Interpretation Code 0-5 [facility] Work Phone: Eosinophils/100 WBC (Bld) 3.4 % 0-5 [facility] Work Phone: Erythrocyte distribution width (RBC) [Ratio] 48.8 fL High 35.1-43.9 [facility] Work Phone: Erythrocyte distribution width (RBC) [Ratio] 15.4 % High 11.6-14.6 [facility] Work Phone: Erythrocytes (RBC) 4.35 10*6/uL Invalid Interpretation Code 4.2-5.4 [facility] Work Phone: Hematocrit (Bld) [Volume fraction] 37.6 % 37-47 [facility] Work Phone: Hematocrit (HCT) 37.6 % Invalid Interpretation Code 37-47 [facility] Work Phone: Hemoglobin (HGB) 11.4 g/dL Low 12.0-15.0 [facility] Work Phone: Immature granulocytes (Bld) [#/Vol] 0.300 % 0.0-0.9 [facility] Work Phone: immature granulocytes, percentage of total cells, blood 0.300 % Invalid Interpretation Code 0.0-0.9 [facility] Work Phone: Lymphocytes 1.29 X10 3/UL Invalid Interpretation Code 0.83-4.51 [facility] Work Phone: Lymphocytes (Bld) [#/Vol] 1.29 X10 3/UL 0.83-4.51 [facility] Work Phone: Lymphocytes/100 leukocytes 19.3 % Invalid Interpretation Code 19-41 [facility] Work Phone: Lymphocytes/100 WBC (Bld) 19.3 % 19-41 [facility] Work Phone: MCH 26.2 pg Low 27.0-32.0 [facility] [employer] Work Phone: MCH (RBC) [Entitic mass] 26.2 pg Low 27.0-32.0 [facility] [employer] Work Phone: MCHC 30.3 G/GL Low 32-36 [facility] [employer] Work Phone: MCHC (RBC) [Mass/Vol] 30.3 G/GL Low 32-36 [facility] [employer] Work Phone: MCV 86.4 fL Invalid Interpretation Code 81-99 [facility] [employer] Work Phone: MCV (RBC) [Entitic vol] 86.4 fL 81-99 [facility] [employer] Work Phone: Monocytes/100 leukocytes 12.8 % High 0-10 [facility] [employer] Work Phone: Monocytes/100 WBC (Bld) 12.8 % High 0-10 [facility] [employer] Work Phone: neutrophil count, blood 4.3 X10 3/UL Invalid Interpretation Code 2.0-7.7 [facility] [employer] Work Phone: Neutrophils (Bld) [#/Vol] 4.3 X10 3/UL 2.0-7.7 [facility] [employer] Work Phone: Neutrophils/100 leukocytes 63.6 % Invalid Interpretation Code 47-70 [facility] [employer] Work Phone: Neutrophils/100 WBC (Bld) 63.6 % 47-70 [facility] [employer] Work Phone: Platelet mean volume (Bld) [Entitic vol] 9.0 fL 6.2-12.0 [facility] [employer] Work Phone: Platelets 419 10*3/mm3 Invalid Interpretation Code 150-450 [facility] [employer] Work Phone: Platelets (Bld) [#/Vol] 419 10*3/mm3 150-450 [facility] [employer] Work Phone: PMV by [employer] 9.0 fL Invalid Interpretation Code 6.2-12.0 [facility] [employer] Work Phone: RBC (Bld) [#/Vol] 4.35 10*6/uL 4.2-5.4 [facility] Work Phone: RDW-CA 15.4 % High 11.6-14.6 [facility] Work Phone: red blood cell distribution width, size density 48.8 fL High 35.1-43.9 [facility] [employer] Work Phone: WBC (Bld) [#/Vol] 6.7 10*3/uL 4.4-11.0 [facility] [employer] Work Phone: WBC (Leukocytes) 6.7 10*3/uL Invalid Interpretation Code 4.4-11.0 [facility] [employer] Work Phone: Lab Report: Comprehensive Md tabolic Profilon 06-02-2016 Albumin/Globulin Ratio 0.8 {ratio} Low 0.9-2.4 [facility] [employer] Work Phone: Anion gap 3 mmol/L Low 5-15 [facility] [employer] Work Phone: Anion gap [Moles/Vol] 3 mmol/L Low 5-15 [facility] [employer] Work Phone: BUN/Creatinine Ratio 3.2 RATIO Low 10-20 [facility] [employer] Work Phone: Calcium 8.3 mg/dL Low 8.5-10.1 [facility] [employer] Work Phone: Chloride 105 mmol/L 98-107 [facility] [employer] Work Phone: CO2 33.0 mmol/L High 21.0-32.0 [facility] [employer] Work Phone: CO2 (BldV) [Partial pressure] 33.0 mmol/L High 21.0-32.0 [facility] [employer] Work Phone: Creatinine 91.91 mL/min Invalid Interpretation Code [facility] [employer] Work Phone: Creatinine 0.93 mg/dL 0.55-1.02 [facility] [employer] Work Phone: eGFR (non-black) 80 mL/min/{1.73_m2} Invalid Interpretation Code >60 [facility] [employer] Work Phone: eGFR (non-black) 66 mL/min/{1.73_m2} >60 [facility] [employer] Work Phone: EST GFR - AA 80 mL/min >60 [facility] [employer] Work Phone: Glucose 101 mg/dL Invalid Interpretation Code 70-110 [facility] [employer] Work Phone: Glucose [Mass/Vol] 101 mg/dL 70-110 [facility] Work Phone: Potassium 4.1 mmol/L 3.5-5.1 [facility] [employer] Work Phone: Sodium 141 mmol/L 136-145 [facility] [employer] Work Phone: Urea nitrogen 3 mg/dL Low 7-18 [facility] [employer] Work Phone: Lab Report: Lipaseon 017 Lipase [Catalytic activity/Vol] 118 U/L 73-393 [facility] [employer] Work Phone: lipase, serum 118 U/L Invalid Interpretation Code 73393 [facility] [employer] Work Phone: Vital Signs Date Time Vital Sign Value Performing Clinician Facility 09-30-2016 14:15-0400 BMI (Body Mass Index) 37.56 kg/m2 Gustabo Muñiz MD [facility] [employer] Work Phone: 09-30-2016 14:15-0400 Body Temperature 97.8 [degF] Gustabo Muñiz MD [facility] [employer] Work Phone: 09-30-2016 14:15-0400 Body Temperature 97.81 [degF] Gustabo Muñiz MD [facility] [employer] Work Phone: 09-30-2016 14:15-0400 Body weight 84.37 kg Gustabo Muñiz MD [facility] [employer] Work Phone: 09-30-2016 14:15-0400 BP Diastolic 85 mm[Hg] Gustabo Muñiz MD [facility] [employer] Work Phone: 09-30-2016 14:15-0400 BP Systolic 141 mm[Hg] Gustabo Muñiz MD [facility] [employer] Work Phone: 09-30-2016 14:15-0400 BSA (Body Surface Area) 1.79 m2 Gustabo Muñiz MD [facility] [employer] Work Phone: 09-30-2016 14:15-0400 Height 149.86 cm Gustabo Muñiz MD [facility] [employer] Work Phone: 09-30-2016 14:15-0400 Pulse (Heart Rate) 84 /min Gustabo Muñiz MD [facility] [employer] Work Phone: 09-30-2016 14:15-0400 Pulse Oximetry 99 % Gustabo Muñiz MD [facility] [employer] Work Phone: 09-30-2016 14:15-0400 Respiratory Rate 16 /min Gustabo Muñiz MD [facility] [employer] Work Phone: 09-30-2016 14:15-0400 Weight 84.37 kg Gustabo Muñiz MD [facility] [employer] Work Phone: 06-02-2016 06:20-0500 Body surface area Derived from formula 91.91 mL/min Gustabo Muñiz MD [facility] [employer] Work Phone: Encounters Encounter Date Encounter Type Care Provider Facility Start: 02-23-2024 Encounter for genera l adult medical examination without abnormal findings Liliana Gamboa NP [facility] Start: 01-31-2024 End: 01-31-2024 ambulatory Liliana Gamboa NP Facility:[facility] Start: 12-30-2023 End: 12-30-2023 ambulatory Jesus Yarbrough [place] [place]: 12-30-2023 End: 12-30-2023 ambulatory Jesus COLEMAN Facility:[facility] Start: 03-30-2021 ambulatory Adrianna asif LPN Chronic Care Management Comment on above: [facility]eeper - C hronic Care; Opened In Error Start: 08-26-2016 End: 08-27-2016 Ambulatory H S AWENDER Facility:[facility] Procedures Date Procedure Procedure Detail Performing Clinician Start: 09-30-2016 End: 09-30-2016 Dietary management education, guidance, and counseling Gustabo Muñiz MD Start: 09-30-2016 End: 09-30-2016 Documentation of current medications Gustabo Muñiz MD Start: 08-26-2016 ERCP REMOVE DUCT CALCULI NA AWENDER Start: 08-26-2016 ERCP REMOVE FORGN BODY D NA AWENDER Plan of Treatment Date Care Activity Detail Author Start: 01-21-2021 Influenza vaccination INFLUENZA (#1) [facility] Start: 06-13-2019 DIABETES SCREEN DIABETES SCREEN [facility] Start: 06-10-2017 COLORECTAL CANCER SCREENING COLORECTAL CANCER SCREENING [facility] Start: 06-10-2017 FECAL OCCULT BLOOD FECAL OCCULT BLOOD [facility] Start: 09-30-2016 End: 09-30-2016 Appointment Appointment [facility] [employer] Work Phone: Start: 09-30-2016 End: 09-30-2016 Echo exam of abdomen US Abdomen, limited [facility] [employer] Work Phone: Start: 10-24-2007 SHINGRIX VACCINE (1 of 2) SHINGRIX VACCINE (1 of 2) [facility] Start: 2002 COLOGUARD (FIT-DNA) COLOGUARD (FIT-DNA) [facility] Start: 2002 Colonoscopy COLONOSCOPY [facility] Start: [address] COLONOGRAPHY [facility] Start: 2002 LIPID SCREEN LIPID SCREEN [facility] Start: 2002 SIGMOIDOSCOPY SIGMOIDOSCOPY [facility] Start: 1997 Mammography MAMMOGRAM [facility] Start: 10-24-1987 HPV TESTING HPV TESTING [facility] Start: 1978 PAP TESTING PAP TESTING [facility] Start: 1976 Urine microalbumin profile DTAP,TDAP,TD (1 - Tdap) [facility] Start: 10-24-1975 HIV SCREENING HIV SCREENING [facility] Start: 1969 Adult depression screening assessment DEPRESSION SCREENING [facility] Start: 1969 COVID-19 VACCINE (1) COVID-19 VACCINE (1) [facility] Payers Date Payer Category Payer Self-pay 2023 Unknown [id number] 2014 Unknown [employer] PPO OOS [id number] 2014-Present [phone] [address] [place] [address] PPO [id number] Unknown [id number] Unknown [id number] Unknown [id number] Unknown [id number] Social History Date Type Detail Facility Start: 05-14-2016 Tobacco smoking stat [facility] Never smoked tobacco [facility] Work Phone: Start: 1955 Sex Assigned At Not on file [facility] Progress note 03-30-2021 Note Date & Type Note Facility 03-30-2021 Note HNO ID: [id number] Author: Adrianna Kohler LPN Service: ? Author Type: LICENSED NURSE Type: Progress Notes Filed: 03/30/2021 5:53 PM Note Text: This encounter was opened in error. [facility] History of Present illness Narrative 03-30-2021 Adrianna Kohler LPN - 03/30/2021 5:48 PM EST Note Date & Type Note Facility 03-30-2021 History of Presen t illness Narrative This encounter was opened in error. documented in this encounter [facility] Evaluation note Note Date & Type Note Facility Evaluation note Diagnosis OPENED IN ERROR- Primary To allow closing an encounter opened in error (used in SmartSet) documented in this encounter [facility] Summary Purpose Family History No Family History Records FoundNo Family History Records FoundNo Family History Records Found Advance Directives No Advanced Directives Records FoundNo Advanced Directives Records FoundNo Advanced Directives Records Found Additional Source Comments INFORMATION SOURCE (unrecogn ized section and content) DATE CREATED AUTHOR 11/16/2017 [facility] DATE CREATED AUTHOR AUTHOR'S ORGANIZ ATION 03/31/2021 [facility] DATE CREATED AUTHOR AUTHOR'S ORGANIZ ATION 02/25/2024 [facility] Source Comments (unrecognize d section and content) In the event this informatio n is protected by the Federal Confidentiality of Alcohol and Drug Abuse Patient Records regulations: The Federal rules restrict any use of the information to criminally investigate or prosecute any alcohol or drug abuse patient.[facility] Reason for Visit (unrecogniz ed section and content) Reason Onset Date Comments [facility] Keeper - Chronic Care 03/30/2021 Opened In Error 03/30/2021 FOR RECORDS PERTAINING TO PATIENTS WHO ARE OR HAVE BEEN ENROLLED IN A CHEMICAL DEPENDENCY/SUBSTANCEABUSE PROGRAM, SOME INFORMATION MAY BE OMITTED. This clinical summary was aggregated from multiple sources. Caution should be exercised in using it in the provision of clinical care. This summary normalizes information from multiple sources, and as a consequence, information in this document may materially change the coding, format and clinical context of patient data. In addition, data may be omitted in some cases. CLINICAL DECISIONS SHOULD BE BASED ON THE PRIMARY CLINICAL RECORDS. [employer] provides no warranty or guarantee of the accuracy or completeness of information in this document.
[2025-01-25 23:06] LABS: Hematocrit 38.2 % (37-47); Hemoglobin 12.6 g/dL (12.0-15.0); Immature Granulocytes Count 0.050 X10^3/uL (0.0-0.0); Mean Corp Hgb Conc 33.0 g/dL (32-36); Mean Corpuscular Volume 85.7 fL (81-99); Mean Platelet Vol. 9.1 fl (6.2-12.0); NRBC Flagged by Analyzer 0 % (0-5); Platelet Count 397 K/mm3 (150-450); RBC Distribution Width CV 13.4 % (11.6-14.6); RBC Distribution Width SD 42.1 fl (35.1-43.9); Red Blood Count 4.46 M/mm3 (4.2-5.4); White Blood Count 11.6 K/mm3 (4.4-11.0)
[2025-01-25 23:25] LABS: AST(SGOT) 24 U/L (<=31); Alanine Aminotransfer ALT/SGPT 29 U/L (<=34); Albumin, Serum 4.4 g/dL (3.4-4.8); Alkaline Phosphatase 115 U/L (35-104); Anion Gap 12 (5-15); BUN 11 mg/dL (4-19); BUN/Creat Ratio 15.5 RATIO (10-20); Calcium,Total 9.7 mg/dL (7.6-11.0); Carbon Dioxide 26.0 mmol/L (21.0-32.0); Chloride 96 mmol/L (98-108); Cholesterol 174 mg/dL (<=200); Globulin 2.8 g/dL (2.2-4.2); Glucose 86 mg/dL (70-99); Low Density Lipoprotein Calc. 79 mg/dL; Potassium 4.6 mmol/L (3.3-5.1); Triglycerides 231 mg/dL; Very Low Density Lipoprotein 46 mg/dL (5-40); cholesterol:hdl ratio screen 3.55
== END | disposition home or self-care (01) ==
PROVIDERS: PCP Nurse Practitioner; Referring Provider Nurse Practitioner; Visit Provider Nurse Practitioner
DX: Z00.00 Encounter for general adult medical examination without abnormal findings (principal)
CPT/HCPCS: 80053; 80061; 85025

== ENCOUNTER 2025-04-15 11:58 | Emergency (ER) | payer OTHER, SELFPAY ==
[2025-04-15 11:59] VITALS: BP 160/74; PULSE 82; RESP 18; TEMP 37.2; O2SAT 99; BMI 39.7
--- NOTE | 2025-04-15 13:41 | VDLE_ITS ---
Reason For Study Reason For Study: Pain RLE RIGHT LEFT GSV is normal. CFV is compressible, spontaneous, phasic, competent, CFV is compressible, spontaneous, phasic, competent and demonstrates normal augmentation. and demonstrates normal augmentation. FV is compressible, spontaneous, phasic, competent and demonstrates normal augmentation. POP V is compressible, spontaneous, phasic, competent and demonstrates normal augmentation. T/P Trunk is compressible. PTV is compressible. RT PerV is compressible. Procedure This is a venous duplex using B-mode, color flow and spectral Doppler. Exam performed portable in ED. A preliminary report was called and/or faxed to Dr. Hodges. VL/Venous Duplex US, Unilateral Interpretation Summary Deep veins of the right lower extremity are patent and compressible segmentally . There is no evidence of right lower extremity deep vein thrombosis. Valvular competence appears intact within the p roximal deep venous system on the right . The right great saphenous vein appears patent and compressible segmentally. The left common femoral vein is patent and compressible . Ordering Physician: Ming Hodges Referring Physician: Liliana Gamboa Performed By: Chacha Antonio, EUFEMIA, RVT
--- NOTE | 2025-04-15 14:26 | EDS_ITS ---
HPI History of Present Illness HPI Narrative: Patient presents with pain and swelling in her right thigh and lower leg. Patient states that he became worse yesterday. Patient states it began rather suddenly. Patient states it is constant. Patient states it is worse with walking. Patient states it is better with elevation and rest. Patient describes her pain as aching. Patient denies any trauma or injury. Patient denies any paresthesias or weakness. Patient denies any fevers or chills. Chief Complaint: Lower Extremity Injury Informant: patient Onset/Context/Timing Onset: Yesterday Context: Sudden Onset Timing: Continuous Quality of Pain: Aching Location: Right lower extremity Worsened by: Walking Relieved by: Elevation, rest Associated Symptoms Associated Symptoms: Negative for Parasthesia, Weakness or Loss of Funtion PFSH [facility] Medical History Anemia Rosacea, acne Hyperlipidemia Depression Dilated CBD Home Medications ?Medication ?Instructions ?Recorded ?Last Taken ?Type aspirin 81 mg tablet,delayed 81 mg PO QDAY 12/30/17 Un known History release (Adult Low Dose Aspirin) atorvastatin 80 mg tablet 80 mg PO QDAY #90 tabs 01/25 Unknown Rx ferrous sulfate 325 mg (65 mg 325 mg PO QDAY 01/25/25 Unknown History iron) tablet (Feosol) levocetirizine 5 mg tablet 5 mg PO QPM PRN allergy sym ptoms 01/25/25 Unknown Rx (Allergy Relief (levocetirizine)) #90 tabs multivitamin 1 tab PO QAM 01/25/25 Unknow n History omeprazole 20 mg capsule,delayed 20 mg PO DAILY #90 ca ps 01/25/25 Unknown Rx release venlafaxine 150 mg 150 mg PO DAILY #90 caps 10/14 Unknown Rx capsule,extended release 24 hr amoxicillin 875 mg-potassium 1 tab PO BID #20 tabs Unknown Rx clavulanate 125 mg tablet prednisone 20 mg tablet 40 mg (2 x 20 mg) PO DAILY # 20 tabs 03/21/25 Unknown Rx Allergy/AdvReac Type Severity Reaction Status Date / Time No Known Allergies Allergy Verified 04/15/25 12:01 Family History (Reviewed 03/22/25 @ 12:07 by Liliana Gamboa PEDIATRIC CLINICAL DIETICIAN, PEDIATRIC CLINICAL DIETICIAN-C) Other CVA (cerebral vascular accident) Depressed High cholesterol Surgical History H/O tubal ligation History of ERCP Social History Smoking Status: Never smoker alcohol intake: never ROS ROS ED Constitutional Constitutional ED: Denies chills or fever(s) Eyes Eyes: Denies blurry vision or change in vision ENT ENT ED: Denies rhinorrhea or sore throat Cardiovascular Cardiovascular: Denies chest pain or palpitations Respiratory/Chest Respiratory/Chest: Reports cough; Denies dyspnea Gastrointestinal Gastrointestinal: Denies nausea or vomiting Genitourinary Genitourinary ED: Denies dysuria or hematuria Musculoskeletal Musculoskeletal: Denies back pain or neck pain Integumentary Denies abscess or rash Neurologic Neurologic: Denies headache(s) or weakness Allergic/Immunologic Allergic/Immunologic ED: Denies mouth swelling or urticaria EXAM Physical Exam Const Vital Signs: 04/15/25 11:59 Temperature 98.9 F Temperature Source Oral Pulse Rate 82 Respiratory Rate 18 Blood Pressure 160/74 H Blood Pressure Mean 102 Pulse Ox 99 Oxygen Delivery Method Room Air Positive well nourished and well developed General Appearance ED: well developed and NAD HEENT Reports moist mucous membranes Neck full ROM and supple Extremity Extremity Narrative: There is tenderness and mild edema of the right lower extremity. There is pain with dorsiflexion of the right ankle. There is pain over the right calf and medial aspect of the right distal thigh. There is no bony crepitance or step- off. There is good range of motion of the right hip, knee, and ankle. Strength is 5/5 bilaterally in the lower extremities. There are no sensory deficits noted. Pedal pulses are equal bilaterally. Neuro oriented x3, CN's II-XII intact bilaterally, moves all extremities and no sensory deficits noted Sensorium / Orientation: alert Motor Exam: strength 5/5 throughout Psych mental status grossly normal MDM MDM MDM Narrative Medical decision making narrative: Differential diagnosis includes muscle strain, DVT, and ligament sprain. Venous duplex of the right lower extremity will be obtained to assess for DVT. Radiography Diagnostic Testing: Venous duplex of the right lower extremity was obtained. There is no evidence of DVT. Treatment and Re-Evaluation Narrative: Patient was advised of her findings. Patient was instructed to keep her legs elevated. Patient was instructed to take Tylenol or ibuprofen as needed for pain. Patient was instructed to follow-up with her primary care physician in 5 to 7 days. Patient understood and was agreeable with the plan. All questions were answered. Discharge Plan Triage Chief Complaint: Lower Extremity Injury ED Provider: Ming Hodges Dx/Rx/DC Orders Clinical Impression: Lower extremity pain, right, Hyperlipidemia Instructions: ED Muscle Strain, Extremity Prescriptions: No Action aspirin [Adult Low Dose Aspirin] 81 mg tablet,delayed release (DR/EC) 81 mg PO QDAY ferrous sulfate [Feosol] 325 mg (65 mg iron) tablet 325 mg PO QDAY multivitamin Tablet 1 tab PO QAM atorvastatin 80 mg tablet 80 mg PO QDAY Qty: 90 3RF levocetirizine [Allergy Relief (levocetirizin)] 5 mg tablet 5 mg PO QPM PRN (Reason: allergy symptoms) Qty: 90 3RF omeprazole 20 mg capsule,delayed release(DR/EC) 20 mg PO DAILY Qty: 90 3RF venlafaxine 150 mg capsule,extended release 24hr 150 mg PO DAILY Qty: 90 3RF prednisone 20 mg tablet 40 mg PO DAILY Qty: 20 0RF amoxicillin-pot clavulanate 875-125 mg tablet 1 tab PO BID Qty: 20 0RF Primary Care Provider: Liliana Gamboa NP Referrals: Liliana Gamboa NP, PEDIATRIC CLINICAL DIETICIAN-C [Primary Care Provider, Family Practice] - 5-7 Days Print Language: [place] Disposition Disposition: Home, Self Care
[2025-04-15 15:14] VITALS: BP 139/75; PULSE 64; RESP 18; TEMP 37.1; O2SAT 99
== END 2025-04-15 15:15 | disposition home or self-care (01) ==
PROVIDERS: Emergency Provider Emergency Medicine; PCP Nurse Practitioner; Visit Provider Emergency Medicine
DX: M79.604 Pain in right leg (principal); E78.5 Hyperlipidemia, unspecified
CPT/HCPCS: 93971; 99282

== ENCOUNTER → 2025-05-01 | Outpatient (CLI) | payer OTHER, SELFPAY ==
--- NOTE | 2025-05-01 15:35 | RAD_ITS ---
PROCEDURE: KNEE 4 OR MORE VIEWS 05/01/2025 REASON FOR EXAM: R KNEE ANTERIOR PAIN TECHNIQUE: Procedure Code: RADKN Modality: DX Procedure: KNEE 4 OR MORE VIEWS Laterality: Right COMPARISON: None FINDINGS: Images of the right knee demonstrate no evidence of fracture or dislocation. There is no significant arthritis of the patellofemoral joint. There is mild lateral displacement of the patella. There is no significant arthritis of the medial joint space compartment of the knee. There is no significant arthritis of the lateral joint space compartment of the knee. There is no knee joint effusion. The periarticular soft tissues are normal. RAD/Knee 4 or More Views IMPRESSION: Mild lateral displacement of the patella. Reading Location: [place] [id number]
== END | disposition home or self-care (01) ==
LOC: RAD 15:29
PROVIDERS: PCP Nurse Practitioner; Referring Provider Nurse Practitioner; Visit Provider Nurse Practitioner
DX: M25.561 Pain in right knee (principal)
CPT/HCPCS: 73564